=== PATIENT | male | born 2000 | race African-American/Black ===

== ENCOUNTER 2019-03-08 16:04 | Emergency (ER) | payer OTHER ==
[2019-03-08] MEDS ORDERED: Lidocaine 1% with EPINEPHrine 1:100,000 10 ML MDV INJECT ONE (17:03)
[2019-03-08] MEDS ORDERED: Cephalexin 500 MG Cap PO ONE (17:08)
[2019-03-08] MEDS ORDERED: Doxycycline 100 MG Cap PO ONE (17:08)
[2019-03-08] MEDS ORDERED: Lidocaine 1% with EPINEPHrine 1:100,000 20 ML MDV ONE (17:16)
--- NOTE | 2019-03-08 17:23 | EDM.PDOC ---
ED HPI GENERAL MEDICAL PROBLEM - General Chief Complaint: Lower Extremity Injury/Pain Stated Complaint: POSSIBLE INFECTION IN RIGHT FOOT Time Seen by Provider: 03/08/19 16:52 - History of Present Illness INITIAL COMMENTS - FREE TEXT/NARRATIVE: HPI 18-year-old male presents for evaluation of ~3 days of significantly worsen swelling and tenderness on the dorsal aspect of his right foot immediately proximal to the junction between his 4th and 5th toes, patient notes that he has athletes foot at the base of his toes in now is experiencing pain, tenderness, and swelling. No fevers, chills, or further symptoms. Denies trauma or stepping on anything sharper injuring his foot. ROS with no recent constitutional symptoms. Exam HR 83, RR 17, BP 147 75, T 36.3C, SaO2 100% on room air. Gen: Pleasant, nontoxic-appearing, resting comfortably. HEENT: NC, AT, PEERL, EOMI. Resp: Unlabored respirations with a normal work of breathing. Card: Extremities warm and well perfused. GI: Non-distended. : Deferred MSK: right foot with an approximately 1.5 cm radius of swelling extending proximally on the dorsal aspect of the foot at the base of the 4th and 5th toes. Central fluctuance. No crepitus. Skin cracking and whitish discoloration that is vertically oriented and approximately 4 mm long and visually c/w athletes foot appreciated between the 4th and 5th toes. Toes with sensation intact to touch, patient able to wiggle all toes with full functional range of motion, toes with brisk distal capillary refill. Foot warm and well perfused with sensation intact to touch. Neuro: alert and oriented 3, no facial asymmetry, vision and hearing WNL. Heme/Lymph: Deferred Skin: Normal color with no visible lesions (other than noted above). Psych: Mood and affect appropriate. Focused Soft Tissue Ultrasound Procedure: Limited evaluation of the dorsum of the left foot proximal to the 4th and 5th toes.. Indication: Evaluation for abscesses and foreign bodies. Views obtained: sagittal and transverse. Findings: central area fluctuance, no gas or foreign bodies. MDM Previous chart, nursing note, and vitals reviewed. A: 18-year-old male presents for evaluation of ~3 days of significantly worsen swelling and tenderness on the dorsal aspect of his right foot immediately proximal to the junction between his 4th and 5th toes, patient notes that he has athletes foot at the base of his toes in now is experiencing pain, tenderness, and swelling. DDx & Evaluation: right foot with abscess and suspected mild surrounding cellulitis, given duration symptoms imaging is not presently warranted. No features suggestive of flux or extensor tendon involvement, no features consistent with necrotizing fasciitis. Given 3 days of symptoms strongly doubt osteomyelitis. I & E as below. Patient given first dose and box in ED and discharged with RX for cephalexin and doxycycline. Patient also prescribed clotrimazole ointment for treatment of his athletes foot. Patient to follow up tomorrow for repeat evaluation. Return to care precautions provided. Incision and Drainage Verbal consent obtained. The abscess and surrounding area was cleaned with chlorhexidine for 30 seconds. A field block using ~1 mL of 1% lidocaine with epinephrine was performed. An 11 blade was used to make a 0.8 cm long incision with expression of purulent material, sterile hemostats were used to break loculations. A sterile dressing was placed over the wound. The patient tolerated the procedure well without any apparent complications. Impression: abscess, athletes foot. Right Feet Pain Score (Numeric/FACES): 8 - Related Data Allergies Allergy/AdvReac Type Severity Reaction Status Date / Time No Known Allergies Allergy Verified 03/08/19 16:30 Home Meds: Home Meds Clotrimazole [Clotrimazole 1%] 45 gm .XX BID #1 tube 03/08/19 [Rx] Doxycycline [Vibramycin] 100 mg PO BID #19 cap 03/08/19 [Rx] cephALEXin [Cephalexin] 500 mg PO QID #39 tablet 03/08/19 [Rx] Past Medical History - Past Health History Medical/Surgical History: Denies Medical/Surgical History - Infectious Disease History Infectious Disease History: Reports: Chicken Pox Social & Family History - Family History Family Medical History: Noncontributory - Tobacco Use Smoking Status *Q: Never Smoker - Caffeine Use Caffeine Use: Reports: None - Recreational Drug Use Recreational Drug Use: No Review of Systems - Review of Systems Review Of Systems: See Below ED EXAM, GENERAL - Physical Exam Exam: See Below Course - Vital Signs Last Recorded V/S: Last Vital Signs Temp 36.3 C 03/08/19 16:31 Pulse 83 03/08/19 16:31 Resp 17 03/08/19 16:31 BP 147/75 H 03/08/19 16:31 Pulse Ox 100 03/08/19 16:31 - Orders/Labs/Meds Meds: Medications Discontinued Medications Generic Name Dose Route Start Last Admin Trade Name Stephen PRN Reason Stop Dose Admin Cephalexin 500 mg 03/08/19 17:08 Keflex PO 03/08/19 17:09 ONETIME ONE Doxycycline Hyclate 100 mg 03/08/19 17:08 Vibramycin PO 03/08/19 17:09 ONETIME ONE Lidocaine/Epinephrine 10 ml 03/08/19 17:03 Xylocaine 1% With Epinephrine 1:100,000 INJECT 03/08/19 17:04 ONETIME ONE Departure - Departure Time of Disposition: 17:27 Disposition: Home, Self-Care 01 Clinical Impression: Abscess - Discharge Information Prescriptions: cephALEXin [Cephalexin] 500 mg PO QID #39 tablet Clotrimazole [Clotrimazole 1%] 45 gm .XX BID #1 tube Doxycycline [Vibramycin] 100 mg PO BID #19 cap Referrals: PCP,None [Primary Care Provider] - Additional Instructions: You were in seen in the [facility] Emergency Department for evaluation of painful swelling on your right foot, you have an abscess that was drained and you have been prescribed cephalexin and doxycycline. You were also found have athletes foot and have been prescribed clotrimazole. Please keep the skin between your feet washed, clean, and try and apply the prescribed clotrimazole twice daily for the next 4 weeks. Please read and follow all of the instructions below. Please follow up with your primary care physician in 2 days for repeat evaluation. When calling for follow-up care, please make the office aware that this follow-up is from your recent emergency room visit. If for any reason you are refused follow-up, please contact the [facility] Emergency Department at and asked to speak to the emergency department charge nurse. Your care today was limited to identifying and treating emergent medical problems only. Many people have subtle differences in their test results that require follow up with their outpatient physician(s) to correctly determine if this represents a normal variation or concerning abnormality with respect to your specific health. The care given to you today was limited to identifying and treating emergent medical problems - you need to request a copy of all of your medical records from today's visit and follow up with your outpatient physician(s) to review both today's visit and your overall health. If you have any new symptoms or if you are at all concerned about your health please return immediately to the emergency department. Abscess You were diagnosed with having an abscess. This is an infection where your body delgado off bacteria and pus. This pus was drained to allow for the wound to heal properly. You may have had a wick or packing placed to allow for further drainage. Please see your primary care physician, urgent care, or if these are unavailable, an emergemcy department in two days for repeat evaluation of the wound as well as removal of any packing or wick. Home care instructions: You may take over the counter ibuprofen and acetaminophen as needed for pain. Please take them as directed on the bottle. Please read all warnings on the bottle. If you were prescribed antibiotics, please take them as directed. Larger abscesses, abscesses with infection of the surrounding skin, or people with increased risk due to their medical history are usually prescribed Cephalexin and Doxycycline. Change dressings at least once a day with a clean, dry sterile gauze dressing. Do not soak your wound. If you have a packing or wick in place, please avoid getting your dressing wet. If you have no packing or wick, or after removal of the wick or packing, you should wash your wound once a day in the shower. Please call your primary care physician or return to the emergency department if any of the following occur: You have increased pain, swelling, or redness around the wound. You have increased drainage, smell, or bleeding from the wound. You have muscle aches, chills, or you feel generally sick. You have temperature > 100.5F. If you are otherwise concerned about your health. Cephalexin (Brand Name: Keflex) Take as directed on the prescription. Take the full prescribed course of medications. SIDE EFFECTS: Diarrhea, dizziness, headache, or stomach upset may occur. If any of these effects persist or worsen, tell your doctor or pharmacist promptly. Tell your doctor immediately if any of these rare but very serious side effects occur: severe stomach/abdominal pain, persistent nausea/vomiting, yellowing eyes /skin, dark urine, change in the amount of urine, new signs of infection (e.g., fever, persistent sore throat), easy bruising/bleeding, mental/mood changes ( e.g., agitation, confusion). This medication may rarely cause a severe intestinal condition (Clostridium difficile-associated diarrhea) due to a resistant bacteria. This condition may occur during treatment or weeks to months after treatment has stopped. Tell your doctor immediately if you develop persistent diarrhea, abdominal or stomach pain/cramping, blood/mucus in your stool. Do not use anti-diarrhea products or narcotic pain medications if you have any of these symptoms because these products may make them worse. Use of this medication for prolonged or repeated periods may result in oral thrush or a new vaginal yeast infection. Contact your doctor if you notice white patches in your mouth, a change in vaginal discharge, or other new symptoms. A very serious allergic reaction to this drug is rare. However, seek immediate medical attention if you notice any symptoms of a serious allergic reaction, including: rash, itching/swelling (especially of the face/tongue/throat), severe dizziness , trouble breathing. This is not a complete list of possible side effects. If you notice other effects not listed above, contact your doctor or pharmacist. PRECAUTIONS: Before taking cephalexin, tell your doctor or pharmacist if you are allergic to it; or to penicillins or other cephalosporins (e.g., cefpodoxime ); or if you have any other allergies. This product may contain inactive ingredients, which can cause allergic reactions or other problems. Talk to your pharmacist for more details. Before using this medication, tell your doctor or pharmacist your medical history, especially of: kidney disease, stomach/ intestinal disease (e.g., colitis). This drug may make you dizzy. Do not drive, use machinery, or do any activity that requires alertness until you are sure you can perform such activities safely. Limit alcoholic beverages. The liquid form of this product may contain sugar. Caution is advised if you have diabetes. Ask your doctor or pharmacist about using this product safely. Kidney function declines as you grow older. This medication is removed by the kidneys. Therefore, older adults may be at greater risk for side effects while using this drug. During , this medication should be used only when clearly needed. Discuss the risks and benefits with your doctor. This medication passes into breast milk. Consult your doctor before breast-feeding. DRUG INTERACTIONS: Your doctor or pharmacist may already be aware of any possible drug interactions and may be monitoring you for them. Do not start, stop, or change the dosage of any medicine before checking with them first. Before using this medication, tell your doctor or pharmacist of all prescription and nonprescription/herbal products you may use, especially of: vaccines that contain live bacteria (e.g., typhoid, BCG), metformin, probenecid. This medication may decrease the effectiveness of combination-type control pills. This can result in . You may need to use an additional form of reliable control while using this medication. Consult your doctor or pharmacist for details. This medication may interfere with certain laboratory tests (including Ace' test, certain urine glucose tests), possibly causing false test results. Make sure laboratory personnel and all your doctors know you use this drug. This document does not contain all possible interactions. Therefore, before using this product, tell your doctor or pharmacist of all the products you use. Keep a list of all your medications with you, and share the list with your doctor and pharmacist. Doxycycline (Brand Name: Vibramycin) Please take this medication as prescribed. Please take the medication for the full duration of the precription. If you feel you are experiencing a side effect, please call your physician or the emergency department. This medication may rarely cause mild to severe rashes that hurt with exposure to sunlight. Please stop this medication and contact your doctor if you have a rash. WARNING/CAUTION: Even though it may be rare, some people may have very bad and sometimes deadly side effects when taking a drug. Tell your doctor or get medical help right away if you have any of the following signs or symptoms that may be related to a very bad side effect: Signs of an allergic reaction, like rash; hives; itching; red, swollen, blistered, or peeling skin with or without fever; wheezing; tightness in the chest or throat; trouble breathing or talking; unusual hoarseness; or swelling of the mouth, face, lips, tongue, or throat. Signs of liver problems like dark urine, feeling tired, not hungry, upset stomach or stomach pain, light-colored stools, throwing up, or yellow skin or eyes. Chest pain. Not able to pass urine or change in how much urine is passed. Fever or chills. Sore throat. Throat irritation. Trouble swallowing. Any bruising or bleeding that is not normal. Joint pain. Feeling very tired or weak. Vaginal itching or discharge. It is common to have diarrhea when taking this drug. Rarely, a very bad form of diarrhea called Clostridium difficile (C diff)-associated diarrhea (CDAD ) may occur. Sometimes, this has led to a deadly bowel problem (colitis). CDAD may happen while you are taking this drug or within a few months after you stop taking it. Call your doctor right away if you have stomach pain or cramps, very loose or watery stools, or bloody stools. Do not try to treat loose stools without first checking with your doctor. Raised pressure in the brain has happened with this drug. Most of the time, this will go back to normal after this drug is stopped. Sometimes, loss of eyesight may happen and may not go away even after this drug is stopped. Call your doctor right away if you have a headache or eyesight problems like blurred eyesight, seeing double, or loss of eyesight. A very bad skin reaction (Alva-Sean syndrome/toxic epidermal necrolysis) may happen. It can cause very bad health problems that may not go away, and sometimes . Get medical help right away if you have signs like red, swollen, blistered, or peeling skin (with or without fever); red or irritated eyes; or sores in your mouth, throat, nose, or eyes. What are some other side effects of this drug? All drugs may cause side effects. However, many people have no side effects or only have minor side effects. Call your doctor or get medical help if any of these side effects or any other side effects bother you or do not go away: Not hungry. Upset stomach or throwing up. Loose stools (diarrhea). These are not all of the side effects that may occur. If you have questions about side effects, call your doctor. Call your doctor for medical advice about side effects. What do I need to tell my doctor BEFORE I take this drug? If you have an allergy to doxycycline or any other part of this drug. If you are allergic to any drugs like this one, any other drugs, foods, or other substances. Tell your doctor about the allergy and what signs you had, like rash; hives; itching; shortness of breath; wheezing; cough; swelling of face, lips, tongue, or throat; or any other signs. If you are taking any of these drugs: Acitretin, isotretinoin, or a penicillin. This is not a list of all drugs or health problems that interact with this drug. Tell your doctor and pharmacist about all of your drugs (prescription or OTC , natural products, vitamins) and health problems. You must check to make sure that it is safe for you to take this drug with all of your drugs and health problems. Do not start, stop, or change the dose of any drug without checking with your doctor. What are some things I need to know or do while I take this drug? You may get sunburned more easily. Avoid sun, sunlamps, and tanning beds. Use sunscreen and wear clothing and eyewear that protects you from the sun. control pills and other hormone-based control may not work as well to prevent . Use some other kind of control also like a condom when taking this drug. This drug may cause a change in tooth color to rifcef-[id number] in children younger than 8 years old. If this change of tooth color happens, it will not go away. Talk with the doctor. Do not give to a child younger than 8 years old unless other drugs cannot be used or have not worked. Talk with the doctor. This drug may cause harm to the unborn baby if you take it while you are . Tell your doctor if you are or plan on getting . You will need to talk about the benefits and risks of using this drug while you are . Tell your doctor if you are breast-feeding. You will need to talk about any risks to your baby. Prescriptions: If you are uninsured or have financial difficulties with filling your prescription(s), you may consider using a free pharmacy discount service such as [employer] ([employer]) or [facility] ([employer]). These services allow you to search for a medication on your phone (or computer) and obtain a coupon that usually has a significant discount from the list melton at a pharmacy. Your physician as well as [facility] does not have a financial relationship with either of these services. You may also wish to speak with your physician to determine if lower cost prescriptions are possible. Obtaining primary care: 1. [facility] provides pediatrics (children), family medicine (children, adults, and some obstetrical care), and internal medicine (adults). Further specialty care is also available. Same day appointments are available. They may be contacted at [phone] and are open Wednesday through Wednesday 8 AM to 5 PM. The [facility] clinics are located at [facility], [address] [place], [place] [address]. 2. [facility] offers family medicine, internal medicine, womens health, and further specialty care. [facility] may be contacted at [phone]. [facility] is located at [address] [place], [address]. 3. If you have health insurance, please also contact your insurer for a list of accepting providers under your policy, you may contact these providers for further health care. Occupational health: Work related injuries may consider following up with [facility], . Occupational health services are located at [address] [place] [address] and are open Wednesday through Wednesday from 7: 30 am to 5:00 pm. Obstetrical and Gynecological Care: [facility], , Wednesday through Wednesday 8 AM to 5 PM. [address] [facility] [place] [address]. Eyecare: If you have an eye injury you should follow up with your sand analyst or with [facility], at [phone] or [phone] , they are located at [address] [place] [address]. Dental Care Jose Ramírez DDS. [address] [facility] [place], [place]. Ph. [phone] Russell Ramírez DDS MS. [address] [facility] [address], [place], [place]. Ph. [phone] Alpesh Hogan DDS. 10 03/09 [facility] [place]. Ph. [phone] Cedric Tejada DDS. [address] [facility] [address] [place], [place]. Ph. [phone] Vu Rodriguez DDS PC. [address] [place], [place]. Ph. [phone] Ines Batista DDS. [address] [facility]. Ph. [phone] [facility]. [address] [place], [place]. Ph. [phone] [facility]. [address], [place], [place]. Ph. [phone] [facility] [address] [place] [phone]. Ph. [facility]. [address] [place] [address] [address] [place], [place]. Ph. [phone] [facility]. [address] [place]. Ph. Sepsis Event Note - Evaluation Sepsis Screening Result: No Definite Risk - Focused Exam Vital Signs: Vital Signs Temp Pulse Resp BP Pulse Ox 03/08/19 16:31 36.3 C 83 17 147/75 H 100 Date Exam was Performed: 03/08/19 Time Exam was Performed: 17:14
== END 2019-03-08 17:45 | disposition home or self-care (01) ==
LOC: MW.ED 16:04
DX: L02.611 Cutaneous abscess of right foot (principal); B35.3 Tinea pedis
CPT/HCPCS: 10060; 99283; A9270